=== PATIENT | female | born 1995 | race African-American/Black ===

== ENCOUNTER → 2016-12-30 | Outpatient (CLI) | payer OTHER ==
[~2016-12-30] MED LIST: ACET50TA PO
[2016-12-30 14:48] LABS: BASO % 0.5 % (0.0-1.0); EOS % 0.7 % (0.0-3.0); LARGE UNSTAINED CELL # 0.1 K/mm3 (0.0-0.4); LARGE UNSTAINED CELL % 1.6 % (0.0-4.0); LYMPH # 0.9 K/mm3 (1.5-6.5); LYMPH % 22.4 % (24.0-44.0); MEAN CORPUSCULAR HEMOGLOBIN 26.6 pg (27.0-33.0); MEAN CORPUSCULAR HGB CONC 32.4 g/dl (32.0-36.5); MEAN CORPUSCULAR VOLUME 82.1 fl (80.0-96.0); MONO # 0.2 K/mm3 (0.0-0.8); NEUTROPHILS # 2.9 K/mm3 (1.8-7.7); NEUTROPHILS % 69.7 % (36.0-66.0); PLATELET COUNT, AUTOMATED 198 k/mm3 (150-450); RED CELL DISTRIBUTION WIDTH 13.1 % (11.5-14.5); WHITE BLOOD COUNT 4.2 K/mm3 (4.0-10.0)
--- NOTE | 2016-12-31 08:11 | REP ---
Clinical: Anatomical re-evaluation. Comparison: None . Findings: Examination demonstrates a single live intrauterine in cephalic presentation. motion is identified by technologist. Placenta is noted posteriorly and grade one without evidence for placenta previa or abruption. Amniotic fluid volume is normal. Cervix measures 3.1 cm in length and appears closed. Nuchal cord cannot be excluded. Gestational age by LMP 33 weeks 5 days with ZACHARY 02/12/2017 . Gestational age by current measurements 33 weeks 2 days with ZACHARY 02/15/2017 . FHR equals 136 beats per minute. Estimated weight 2266 grams ( 46th percentile). Amniotic fluid index equals 6.8 cm (8.2 - 24.7). Umbilical cord SD ratio equals 3.33 (2.00 - 3.00) Anatomical assessment is limited due to advanced age, but demonstrates mild bilateral hydronephrosis; renal pelvises measures 7 mm diameter. Impression: 1. Single live advanced gestation in cephalic presentation. 2. Amniotic fluid volume is below normal range. 3. Mild hydronephrosis/renal fullness warrant evaluation. 4. Nuchal cord cannot be excluded. Signed by Jurgen Ochoa MD 12/31/2016 04:23 A
== END ==
LOC: M SMT 07:56
PROVIDERS: ATTEND Advanced Practice Midwife
DX: Z34.83 Encounter for supervision of other normal pregnancy, third trimester (principal)

== ENCOUNTER → 2017-01-13 | Outpatient (REF) | payer OTHER | LOC: M LAB REF 18:52 | PROVIDERS: ATTEND Obstetrics & Gynecology | DX: Z34.83 Encounter for supervision of other normal pregnancy, third trimester (principal) ==

== ENCOUNTER → 2017-01-25 | Outpatient (CLI) | payer OTHER ==
--- NOTE | 2017-01-25 21:14 | REP ---
Clinical: Growth evaluation. Comparison: 12/30/2016 . Findings: Examination demonstrates a single live intrauterine in cephalic presentation. motion is identified by technologist. Placenta is noted posteriorly and grade I without evidence for placenta previa or abruption. Amniotic fluid volume is lower limits of normal. No evidence for nuchal cord. Gestational age by LMP 37 weeks 3 days with ZACHARY 02/12/2017 . Gestational age by current measurements 35 weeks 5 days with ZACHARY 02/24/2017. FHR equals 141 beats per minute. BPD 8.4 cm 33 weeks 6 days HC 31.1 cm 34 weeks 5 days AC 32.7 cm 36 weeks 4 days FL 7.4 cm 37 weeks 4 days HL 6.3 cm 36 weeks 2 days HC/AC ratio 0.95 MORE equals 7.1 cm (7.4 - 24.2). Estimated weight 2913 grams ( 38th percentile). Impression: Amniotic fluid volume is lower limits of normal. While growth appears to be somewhat less than expected based on LMP and first ultrasound, estimated weight remains within normal limits. Signed by Jurgne Ochoa MD 01/25/2017 09:06 P
== END ==
LOC: M SMT 14:48
PROVIDERS: ATTEND Advanced Practice Midwife
DX: O26.843 Uterine size-date discrepancy, third trimester (principal); Z3A.00 Weeks of gestation of pregnancy not specified

== ENCOUNTER 2017-02-09 00:26 | Inpatient (IN) | payer OTHER ==
[~2017-02-09] VITALS: Ht 167.6 cm; Wt 57.0 kg
[2017-02-09 00:44] VITALS: BP 123/74
[2017-02-09] MEDS ORDERED: OXYTOCIN 30 UNITS IN 0.9% NaCl 500ML IV BAG (J2590) As Ordered ONE (01:21)
[2017-02-09 01:57] LABS: MEAN CORPUSCULAR HEMOGLOBIN 26.2 pg (27.0-33.0); MEAN CORPUSCULAR HGB CONC 31.8 g/dl (32.0-36.5); MEAN CORPUSCULAR VOLUME 82.4 fl (80.0-96.0); WHITE BLOOD COUNT 8.1 K/mm3 (4.0-10.0)
[2017-02-09 03:27] VITALS: BP 113/75
--- NOTE | 2017-02-09 05:48 | HPE ---
DATE OF ADMISSION: 02/09/2017 Kings is a 22-year-old 1, para 0, at 39-4/7 weeks gestation with an estimated date of confinement (EDC) of 02/12/2017 based on last period and confirmed by first trimester ultrasound. She presents to labor and delivery today with report of onset of uncomfortable contractions that have progressively gotten closer together and now are about every 2-3 minutes and extremely painful. She does report some scant bleeding. Denies leakage of fluid and her fetus has been active. care was initiated at [facility] care provider, was transferred to [facility] in the third trimester from [place]. Her course has been uncomplicated. OBSTETRICAL HISTORY: Primigravida. OB LABS: Blood type O+, antibody screen negative. Rubella immune, VDRL nonreactive. Hepatitis B surface antigen negative. HIV negative. Gonorrhea and chlamydia negative. Cystic fibrosis carrier screening negative. Gestational diabetic screening 120. GBS is negative. Urine culture negative. PAST MEDICAL HISTORY: Childhood varicella. SURGERIES: None. FAMILY HISTORY: Noncontributory. SOCIAL HISTORY: The patient is . She is a nonsmoker. Denies alcohol and drug use. Denies any history of sexually transmitted infections and denies history of abuse physical, sexual and emotional. Her is at bedside and he is supportive. ALLERGIES: Reports allergic to MOTRIN, gets hives. CURRENT MEDICATIONS: Include: - vitamins OBJECTIVE: Temperature 97.8. Pulse 75. Respirations 18. Blood pressure 123/74. She is alert and oriented times three. She is crying and tensing with her contractions. heart rate is 135 with moderate variability. Positive accelerations. No decelerations observed. She is karolina every 3 minutes. Sterile vaginal exam: 6 cm, 100% effaced, minus 2 station, bulging bag of water and positive show. Her abdomen is gravid, cephalic presentation with an estimated weight of 6 pounds. ASSESSMENT: Intrauterine at 39-4/7 weeks, heart rate category 1, active labor. PLAN: Admit patient to labor and delivery. Saline lock. Regular diet. Out of bed ad kayley. Labs. At this time, the patient declines an epidural. I do anticipate continued labor progress and a normal spontaneous vaginal delivery.
[2017-02-09 07:08] VITALS: BP 117/67
[2017-02-09] MEDS ORDERED: OXYTOCIN DRIP 30 UNITS in APPROPRIATE DILUENT 1 EA IV SCH (07:08)
--- NOTE | 2017-02-09 07:11 | DN ---
DATE OF DELIVERY: 02/09/2017 HISTORY: Abigail is a 22-year-old 1, para 1-0-0-1 now, who was admitted to labor and delivery in active labor. She progressed through her labor physiologically, coped with her labor with out of bed positions and one-on-one labor support. She had assisted rupture of membranes for clear odorless fluid at 0530. She progressed to full dilation at 0610. She pushed to a normal spontaneous vaginal delivery of a live male infant in occiput anterior (OA) position with restitution to left occiput transverse (LOT) position at 0610. There was no nuchal cord. The shoulders delivered with gentle downward traction and the corpus immediately followed. The was placed on maternal abdomen crying and active. His mouth and nares were bulb suctioned. The cord was clamped times two and cut by the father of the baby. Spontaneous expulsion of an intact placenta with three-vessel cord by Rubio mechanism was at 0627. Uterine hemostasis was achieved with intravenous (IV) Pitocin rapid infusion and uterine fundal massage. Estimated blood loss 300 mL. Perineum and vagina were inspected, noted to have a second-degree midline laceration. The laceration was infiltrated with 1% lidocaine and repaired with a 3-0 Rapide in the usual fashion. Burkett male weighed 7 pounds 3 ounces, 3054 grams, scores 8 and 9. Mom plans to bottle feed her son and the family have named him Marcial. At the close of delivery, lap counts, needle counts and instrument counts were correct and verified.
[2017-02-09] MEDS ORDERED: MEASLES,MUMPS,RUBELLA VACCINE INJ (MMR-II) (90707) SC SCH (07:15)
[2017-02-09] MEDS ORDERED: RHOGAM 300 MCG (1500 IU) INJ (J2790) IM SCH (07:15)
[2017-02-09] MEDS ORDERED: DIBUCAINE 1% OINTMENT 30GM TOP PRN (07:15)
[2017-02-09] MEDS ORDERED: ONDANSETRON 4MG/2ML VIAL (J2405) IV PRN (07:15)
[2017-02-09] MEDS ORDERED: METHYLERGONOVINE MALEATE 0.2 MG TAB PO PRN (07:15)
[2017-02-09] MEDS ORDERED: DOCUSATE SODIUM 100 MG CAP PO PRN (07:15)
[2017-02-09 07:23] VITALS: BP 117/69
[2017-02-09] MEDS ORDERED: LIDOCAINE 1% MDV INJ 50 ML VIAL INFIL ONE (08:00)
[2017-02-09] MEDS: PRENATAL VITAMINS CHEWABLE TABLET PO SCH (09:00)
[2017-02-09 18:00] VITALS: BP 109/69
[2017-02-10] MEDS: ACETAMINOPHEN 500 MG TAB PO PRN ×2 (00:08→05:57)
[2017-02-10 06:00] VITALS: BP 110/60
[2017-02-10] MEDS: PRENATAL VITAMINS CHEWABLE TABLET PO SCH (08:07)
[2017-02-10 18:00] VITALS: BP 117/84
[2017-02-11 05:47] VITALS: BP 113/71
[2017-02-11] MEDS: PRENATAL VITAMINS CHEWABLE TABLET PO SCH (07:39)
[2017-02-11] MEDS ORDERED: INFLUENZA QUADRIVALENT PF VACCINE 0.5ML SYRINGE (90686) IM ONE (09:00)
[2017-02-11] MEDS ORDERED: ADACEL/BOOSTRIX VACCINE (DIPHTH/PERTUSS/ACELL/TETANUS)0.5ML SYR (90715) IM ONE (09:00)
[2017-02-11] MEDS ORDERED: ACET50TA PO (09:16)
== END 2017-02-11 09:45 | disposition home or self-care (01) | DRG 775 ==
LOC: M LDO 00:26 → M LDI 01:07 → M OBS 09:54
PROVIDERS: ADMIT Advanced Practice Midwife; ATTEND Advanced Practice Midwife
PROC: 10E0XZZ Delivery of Products of Conception, External Approach (ICD-10-PCS; principal; 2017-02-09)
PROC: 0KQM0ZZ Repair Perineum Muscle, Open Approach (ICD-10-PCS; 2017-02-09)
DX: O70.1 Second degree perineal laceration during delivery (principal); Z37.0 Single live birth; Z3A.39 39 weeks gestation of pregnancy

== ENCOUNTER → 2017-04-26 | Outpatient (REF) | payer OTHER | LOC: M LAB REF 19:12 | PROVIDERS: ATTEND Advanced Practice Midwife | DX: Z12.4 Encounter for screening for malignant neoplasm of cervix (principal); R87.612 Low grade squamous intraepithelial lesion on cytologic smear of cervix (LGSIL) ==

== ENCOUNTER → 2018-05-15 | Outpatient (REF) | payer OTHER ==
[~2018-05-15] MED LIST changes: -ACET50TA PO; +MAPA500T17 PO
== END ==
LOC: M LAB REF 15:21
PROVIDERS: ATTEND Physician Assistant
DX: R59.9 Enlarged lymph nodes, unspecified (principal)

== ENCOUNTER → 2018-05-15 | Outpatient (CLI) | payer OTHER ==
[2018-05-15 15:31] LABS: BASO % 0.4 % (0.0-1.0); EOS % 1.4 % (0.0-3.0); HEMATOCRIT 37.3 % (36.0-47.0); HEMOGLOBIN 11.6 g/dl (12.0-15.5); LYMPH # 1.2 10^3/uL (1.5-6.5); LYMPH % 41.8 % (24.0-44.0); MEAN CORPUSCULAR HEMOGLOBIN 24.8 pg (27.0-33.0); MEAN CORPUSCULAR HGB CONC 31.1 g/dl (32.0-36.5); MEAN CORPUSCULAR VOLUME 79.7 fl (80.0-96.0); MONO # 0.3 10^3/uL (0.0-0.8); MONO % 10.9 % (0.0-5.0); NEUTROPHILS # 1.3 10^3/uL (1.8-7.7); NEUTROPHILS % 45.5 % (36.0-66.0); PLATELET COUNT, AUTOMATED 232 10^3/uL (150-450); RED BLOOD COUNT 4.68 10^6/uL (4.00-5.40); WHITE BLOOD COUNT 2.9 10^3/uL (4.0-10.0)
[2018-05-15 15:46] LABS: ALBUMIN 3.3 GM/DL (3.2-5.2); ALT/SGPT 13 U/L (12-78); BILIRUBIN,TOTAL 0.2 MG/DL (0.2-1.0); BLOOD UREA NITROGEN 13 MG/DL (7-18); CALCIUM LEVEL 8.4 MG/DL (8.5-10.1); CARBON DIOXIDE LEVEL 28 MEQ/L (21-32); CHLORIDE LEVEL 106 MEQ/L (98-107); CREATININE FOR GFR 0.75 MG/DL (0.55-1.30); FREE T4 1.23 NG/DL (0.76-1.46); GLOMERULAR FILTRATION RATE > 60.0 (>60); GLUCOSE, FASTING 80 MG/DL (70-100); POTASSIUM SERUM 3.9 MEQ/L (3.5-5.1); SODIUM LEVEL 141 MEQ/L (136-145); TOTAL PROTEIN 8.3 GM/DL (6.4-8.2)
== END ==
LOC: M WUC 13:35
PROVIDERS: ATTEND Physician Assistant
DX: R59.9 Enlarged lymph nodes, unspecified (principal)